=== PATIENT | male | born 1950 ===

== ENCOUNTER 2016-10-14 15:02 | Emergency (ER) | payer BC ==
[2016-10-14 15:35] VITALS: BP 144/77; PULSE 70; RESP 18; TEMP 98.6; O2SAT 99
--- NOTE | 2016-10-14 16:09 | ED PDOC ---
Lower Extremity Pain/Injury Time Seen by Provider: 10/14/16 15:36 Chief Complaint (Nursing): Lower Extremity Problem/Injury Chief Complaint (Provider): Lower Extremity Problem/Injury History Per: Patient History/Exam Limitations: no limitations Onset/Duration Of Symptoms: Days (x14) Additional Complaint(s): Ru Singh, 65 year old male presents to the ED on 10/14/16 with atraumatic bilateral knee and left foot pain occurring for 14 days prior to arrival. The patient states that he has had similar symptoms in the past, occurring intermittently and worsening over the last 2 weeks. The patient denies any trauma, numbness, tingling, calf pain, chest pain, or shortness of breath. Past Medical History Reviewed: Historical Data, Nursing Documentation, Vital Signs Vital Signs: Last Vital Signs Temp 98.6 F 10/14/16 15:32 Pulse 70 10/14/16 15:32 Resp 18 10/14/16 15:32 BP 144/77 10/14/16 15:32 Pulse Ox 99 10/14/16 15:32 - Medical History PMH: HTN, Hypercholesterolemia - Family History Family History: States: Unknown Family Hx - Home Medications Home Medications: Ambulatory Orders Medication Instructions Recorded Azithromycin [Zithromax Z-Bladimir] 250 mg PO DAILY #6 tab 06/22/15 Benzonatate [Tessalon Perles] 100 mg PO TID PRN #30 sgl 06/22/15 Meloxicam [Mobic] 1 - 2 tab PO DAILY PRN #10 tab 10/14/16 - Allergies Allergies/Adverse Reactions: Allergies Allergy/AdvReac Type Severity Reaction Status Date / Time No Known Allergies Allergy Verified 06/22/15 12:53 Review of Systems Constitutional: Negative for: Other (no hx of trauma) Cardiovascular: Negative for: Chest Pain Respiratory: Negative for: Shortness of Breath Musculoskeletal: Positive for: Leg Pain (atraumatic bilateral knee and left foot pain; no calf pain) Neurological: Negative for: Numbness (and no tingling) Physical Exam - Reviewed Nursing Documentation Reviewed: Yes Vital Signs Reviewed: Yes - Physical Exam Appears: Positive for: Non-toxic, No Acute Distress Head Exam: Positive for: ATRAUMATIC, NORMOCEPHALIC Skin: Positive for: Normal Color, Warm, Dry Eye Exam: Positive for: Normal appearance ENT: Positive for: Normal ENT Inspection Neck: Positive for: Normal, Painless ROM Cardiovascular/Chest: Positive for: Regular Rate, Rhythm, Chest Non Tender Respiratory: Positive for: Normal Breath Sounds. Negative for: Respiratory Distress Gastrointestinal/Abdominal: Positive for: Normal Exam, Soft. Negative for: Tenderness Back: Positive for: Normal Inspection Extremity: Positive for: Swelling (bilateral knees with mild swelling; bilateral feet with no swelling), Other (positive crepitus; bilateral knees with no warmth and no erythema; dorsalis pedis pulses 2+). Negative for: Tenderness (no tenderness with bilateral knees, bilateral feet, and bilateral calves), Deformity (no deformity to bilateral feet) Neurologic/Psych: Positive for: Alert, Oriented (x3) - ECG O2 Sat by Pulse Oximetry: 99 (RA) Pulse Ox Interpretation: Normal - Progress ED Course And Treament: B/L knee xray: DJD, nothing acuate L hand x-ray: DJD, nothing acute L foot x-ray: nothing acute Medical Decision Making Medical Decision Makin:36 Initial Impression: Lower Extremity Injury/Problem Initial Plan: * Foot Left 3 Views Routine [RAD] Stat * Knee 3 Views LT [RAD] Stat * Knee 3 Views RT [RAD] Stat * Ultram 50 mg PO STAT * Reevaluation Scribe Attestation: Documented by Gertrudis Ritchie, acting as a scribe for Omega Olson PA-C. Provider Scribe Attestation: All medical record entries made by the Scribe were at my direction and personally dictated by me. I have reviewed the chart and agree that the record accurately reflects my personal performance of the history, physical exam, medical decision making, and the department course for this patient. I have also personally directed, reviewed, and agree with the discharge instructions and disposition. Disposition - Clinical Impression Clinical Impression: Arthralgia - Patient ED Disposition Is Patient to be Admitted: No - Disposition Referrals: [facility] [Outside] Disposition: Routine/Home Disposition Time: 16:49 Condition: STABLE Additional Instructions: Follow up with your PMD in 2 days for further evaluation. Prescriptions: Meloxicam [Mobic] 1 - 2 tab PO DAILY PRN #10 tab PRN Reason: pain Instructions: Arthralgia (ED) Forms: [facility] ED School/Work Excuse, [employer] (Setswana)
--- NOTE | 2016-10-14 16:48 | RAD ---
PROCEDURE: Left Hand Radiographs. HISTORY: pain COMPARISON: None available. FINDINGS: BONES: No acute displaced fracture. JOINTS: No dislocation. SOFT TISSUES: Unremarkable. No evidence of radiopaque foreign body. OTHER FINDINGS: None. IMPRESSION: No acute displaced fracture, dislocation, or significant joint effusion identified. If symptoms persist, or if there is continued clinical concern, x-ray follow-up in 7-10 days should be considered.
--- NOTE | 2016-10-14 16:57 | RAD ---
PROCEDURE: Right Knee Radiographs. HISTORY: COMPARISON: None available. FINDINGS: Rotated lateral view BONES: Osseous demineralization limits evaluation for acute fracture lines. Degenerative changes including tenting of the intercondylar notch. No acute displaced fracture. JOINTS: No dislocation. Tricompartmental joint space narrowing. JOINT EFFUSION: Small suprapatellar joint effusion. OTHER FINDINGS: None. IMPRESSION: Osseous demineralization. Moderate to severe degenerative changes including tricompartmental narrowing. Small suprapatellar joint effusion.
--- NOTE | 2016-10-14 16:59 | RAD ---
PROCEDURE: Left Knee Radiographs. HISTORY: COMPARISON: None available FINDINGS: BONES: Osseous demineralization. No acute displaced fracture. JOINTS: No dislocation. JOINT EFFUSION: Probable small suprapatellar joint effusion. OTHER FINDINGS: None. IMPRESSION: Osseous demineralization. Probable small suprapatellar joint effusion. No acute displaced fracture or dislocation identified. If symptoms persist or if there is continued clinical concern, x-ray follow-up in 7-10 days should be considered.
--- NOTE | 2016-10-14 17:02 | RAD ---
PROCEDURE: Left Foot Radiographs. HISTORY: pain COMPARISON: None available. FINDINGS: BONES: Osseous demineralization limits evaluation for acute fracture lines. No acute displaced fracture. JOINTS: No dislocation. SOFT TISSUES: Soft tissue swelling. Vascular calcifications. No evidence of radiopaque foreign body. OTHER FINDINGS: None. IMPRESSION: Osseous demineralization. Soft tissue swelling. Vascular calcifications. No acute displaced fracture or dislocation identified.If symptoms persist, or if there is continued clinical concern, x-ray follow-up in 7-10 days should be considered.
== END 2016-10-14 17:49 | disposition home or self-care (01) ==
LOC: H.ER 15:02
DX: M25.562 Pain in left knee (principal); M79.672 Pain in left foot; M25.461 Effusion, right knee; M25.50 Pain in unspecified joint